=== PATIENT | male | born 2000 | race Asian ===

== ENCOUNTER 2021-04-01 15:53 | Emergency (ER) | payer OTHER, SELFPAY ==
[2021-04-01 15:55] VITALS: BP 127/69; PULSE 65; RESP 18; TEMP 36.9; O2SAT 96; BMI 24.1
--- NOTE | 2021-04-01 15:57 | EKG12_ITS ---
Test Reason : CP Blood Pressure : / mmHG Vent. Rate : 059 BPM Atrial Rate : 059 BPM P-R Int : 170 ms QRS Dur : 078 ms QT Int : 396 ms P-R-T Axes : 072 071 046 degrees QTc Int : 392 ms Sinus bradycardia Otherwise normal ECG Confirmed by FELIPE BONE MD ([id number]), make up editor VINOD SHAH ([id number]) on 04/02/2021 1:13:19 PM Also confirmed by FELIPE BONE MD ([id number]), make up editor BRADY RUBI ([id number]) on 04/02/2021 1:23:18 PM Referred By: ALANA ADAM Confirmed By:FELIPE BONE MD
--- NOTE | 2021-04-01 17:00 | RAD_ITS ---
STUDY: X-RAY CHEST REASON FOR EXAM: Male, 21 years old. chest pain TECHNIQUE: Single AP portable view of the chest. COMPARISON: None. FINDINGS: The lungs are clear and expanded. There is no demonstrated pleural abnormality. Normal size heart. Normal mediastinum and davin. Normal visualized pulmonary arteries. Normal visualized aortic arch and descending thoracic aorta. Normal visualized thoracic spine. Normal visualized ribs, clavicles, and shoulders. There is no demonstrated abnormality of the visualized soft tissue structures of the upper abdomen. RAD/Chest 1 View (Portable) IMPRESSION: Normal x-ray examination of the chest. Electronically Signed: Kev Quevedo MD at 17:25 EST Tel , Service support ,
[2021-04-01 20:15] VITALS: BP 140/70; PULSE 58; RESP 13; O2SAT 97; O2SAT 98
--- NOTE | 2021-04-01 20:48 | ED.VIS.CHEST ---
HPI History of Present Illness Chief Complaint: Chest Pain Informant: patient Narrative Narrative: Intermittent chest pain for the past 6 weeks. Initially every 1 to 2 weeks occurring and lasting not more than 1 hour. Since yesterday increasing pressure been persistent. States has indigestion throat sensations. No radicular symptoms. No nausea or vomiting. Patient does admit to drinking 2 to 3 cups of coffee a day. Denies lightheaded symptoms no palpitations. Nonbloody stools. Denies tobacco or illicit drug use. No family history of MIs at young age. He only takes multivitamins at home. Prior to 6 weeks ago no previous similar symptoms. During exam states symptoms subsided. PFSH PFSH Medical History Non-smoker Home Medications NK 04/01/21 [History Last Taken Unknown] omeprazole 40 mg PO DAILY #30 cap 04/01/21 [Rx Last Taken Unknown] Allergy/AdvReac Type Severity Reaction Status Date / Time No Known Allergies Allergy Verified 04/01/21 15:54 Social History Smoking Status: Never smoker ROS ROS ED Constitutional Constitutional ED: Denies chills, fever(s) or sweats Eyes Eyes: Denies change in vision ENT ENT ED: Denies dysphagia or sore throat Cardiovascular Cardiovascular: Reports chest pain; Denies leg edema, palpitations or racing heartbeat Respiratory/Chest Respiratory/Chest: Denies cough, dyspnea or dyspnea on exertion Gastrointestinal Gastrointestinal: Denies abdominal pain, diarrhea, nausea or vomiting Genitourinary Genitourinary ED: Denies dysuria, hematuria or urinary frequency Musculoskeletal Musculoskeletal: Denies back pain, extremity pain or neck pain Integumentary Denies rash or wounds Neurologic Neurologic: Denies headache(s), paresthesias or weakness EXAM Physical Exam Const Vital Signs: 04/01/21 15:55 04/01/21 20:08 04/01/21 20:15 Temperature 98.5 F Temperature Source Temporal Pulse Rate 65 58 L Respiratory Rate 18 13 Respiratory Effort Normal Blood Pressure 127/69 H 140/70 H Blood Pressure Mean 88 93 Pulse Ox 96 97 Oxygen Delivery Method Room Air Room Air 04/01/21 22:16 Temperature Temperature Source Pulse Rate 60 Respiratory Rate 15 Respiratory Effort Blood Pressure 124/74 H Blood Pressure Mean Pulse Ox 97 Oxygen Delivery Method Positive well nourished and well developed General Appearance ED: well developed and NAD HEENT Reports moist mucous membranes normocephalic and atraumatic Eyes PERRL, EOMs intact bilaterally and conjunctivae normal General Eye ED: Yes normal appearance of both eyes Neck no lymphadenopathy and supple General: Negative for tenderness Chest Wall Chest: Negative for tenderness Resp normal respiratory effort and normal air movement Effort and Inspection: symmetric chest movement; Negative for respiratory distress Cardio regular rate, regular rhythm and no murmurs Peripheral Pulses: pulses 2+ throughout GI normal to inspection, nondistended, normoactive bowel sounds and non-tender Palpation: Negative for guarding or rebound tenderness present Back/Spine no CVA tenderness and no thoracic nor lumbar tenderness Extremity normal to inspection General Extremety ED: Negative for edema or tenderness General Extremity: Negative for edema Neuro oriented x3 and no sensory deficits noted Sensorium / Orientation: awake and alert Skin no rashes or lesions noted and no wounds Heart Score History: Slightly/Non-Suspicious ECG: Normal Age: </= 45 years Risk Factors: No Risk Factors Troponin: </= Normal Limit Score: 0 MDM MDM MDM Narrative Medical decision making narrative: EKG normal cardiac work-up normal chest x-ray reviewed by myself negative patient with persistent symptoms negative troponin, therefore less likely cardiac in nature. However on reevaluation symptoms significantly subsided. With his history of caffeine use, discussed potential reflux symptoms. Heart score is a 0. Discussed decreasing caffeine intake. He is placed on a PPI. Given follow-up as an outpatient. Return precautions discussed. All questions were answered. Patient is being discharged under pandemic conditions under declared global, national and state disaster activation, with limited medical resources. Patient and community understands this. Results discussed in layman's terms to the patient satisfaction. All questions answered in layman's terms. Patient understands importance of follow-up care as directed. Patient has been instructed to return to the ED immediately if new symptoms, problems, or questions occur. We mutually agree with the plan of disposition. The patient understand that they may call or return with any questions or concerns at any time. Lab Data Attestation: I reviewed the patient's lab results. Labs: Laboratory Results - last 24 hr 04/01/21 04/01/21 21:01 21:01 WBC 5.8 RBC 4.49 L Hgb 13.7 Hct 41.3 MCV 92.0 MCH 30.5 MCHC 33.2 RDW Std Deviation 41.2 RDW Coeff of Ted 12.3 Plt Count 207 MPV 9.6 Immature Gran % (Auto) 0.200 Neut % (Auto) 55.3 Lymph % (Auto) 32.0 [place] % (Auto) 10.1 H Eos % (Auto) 2.1 Baso % (Auto) 0.3 Absolute Neuts (auto) 3.2 Absolute Lymphs (auto) 1.84 Nucleated RBC % 0 Sodium 141 Potassium 3.9 Chloride 108 H Carbon Dioxide 28.0 Anion Gap 5 BUN 17 Creatinine 1.00 Estim Creat Clear Calc 119.64 Est GFR (MDRD) Af Amer 120 Est GFR (MDRD) Non-Af 99 BUN/Creatinine Ratio 17.0 Glucose 93 Calcium 9.0 Troponin I High Sens 3 Radiography Chest X-Ray - ED: 1 View, Read by ED Physician and No Acute Disease EKG Initial EKG: Attestation: I personally reviewed and interpreted this EKG as follows: Comments: Sinus rate of 59, no ST or T wave changes.. Discharge Plan Triage Chief Complaint: Chest Pain ED Provider: Scooter Wheat Dx/Rx/DC Orders Clinical Impression: Chest pain Instructions: ED Chest Pain, Uncertain Cause Prescriptions: New omeprazole 40 mg capsule,delayed release(DR/EC) 40 mg PO DAILY Qty: 30 RF: 0 No Action NK RF: 0 Primary Care Provider: Care Physician,No Primary Referrals: Mitzi Linares MD [STAFF PHYSICIAN] - 3-5 Days Care Physician,No Primary [Primary Care Provider] - Activity Restrictions/Additional Instructions: Try to decrease her caffeine intake. Take GI medication as prescribed. Follow-up. Return if any worsening symptoms. Disposition Disposition: Home, Self Care Discharge Date/Time: 04/01/21 22:17
[2021-04-01 21:15] LABS: Absolute Lymphocyte Count 1.84 X10^3/uL (0.83-4.51); Absolute Neutrophil Count 3.2 X10^3/uL (2.0-7.7); Basophil# 0.02 X10^3/uL; Basophil% 0.3 % (0-1); Eosinophil# 0.12 X10^3/uL; Eosinophils% 2.1 % (0-5); Hematocrit 41.3 % (40-54); Hemoglobin 13.7 g/dL (13.0-16.5); Lymphocyte # 1.84 X10^3/ul (0.83-4.51); Mean Corp Hgb Conc 33.2 g/dL (32-36); Mean Corpuscular Hgb 30.5 pg (27.0-32.0); Mean Platelet Vol. 9.6 fl (6.2-12.0); Monocyte# 0.58 X10^3/uL; Monocyte% 10.1 % (0-10); NRBC Flagged by Analyzer 0 % (0-5); Neutrophil # 3.18 X10^3/uL (2.7-7.7); Neutrophil % 55.3 % (47-70); Platelet Count 207 K/mm3 (150-450); RBC Distribution Width CV 12.3 % (11.6-14.6); RBC Distribution Width SD 41.2 fl (35.1-43.9); Red Blood Count 4.49 M/mm3 (4.6-6.2); White Blood Count 5.8 K/mm3 (4.4-11.0)
[2021-04-01 21:40] LABS: Anion Gap 5 (5-15); BUN 17 mg/dL (7-18); Chloride 108 mmol/L (98-107); EST Glomerular Filtration Rate 99 mL/min (>60); Est Glom Filt Rate - Afr Amer 120 mL/min (>60); Estimated Creatinine Clearance 119.64 ml/min; Glucose 93 mg/dL (74-106); Potassium 3.9 mmol/L (3.5-5.1); Sodium Level 141 mmol/L (136-145); Troponin-I HS 3 pg/mL (3.0-78.0)
[2021-04-01 22:16] VITALS: BP 124/74; PULSE 60; RESP 15; O2SAT 97
== END 2021-04-01 22:17 | disposition home or self-care (01) ==
PROVIDERS: Emergency Provider Emergency Medicine
DX: R07.9 Chest pain, unspecified (principal)
CPT/HCPCS: 71045; 80048; 84484; 85025; 93005; 99284; A4216